=== PATIENT | male | born 1965 | race Caucasian/White ===

== ENCOUNTER 2023-11-21 21:22 | Emergency (ER) | payer SELFPAY ==
[2023-11-21 21:23] VITALS: BP 128/83; PULSE 73; RESP 16; TEMP 36.4; O2SAT 98; BMI 22.9
[2023-11-21 21:36] VITALS: RESP 18
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
[2023-11-21] MEDS: fentaNYL 50 mcg/mL INJ 2mL IVP (22:17)
[2023-11-21] MEDS: ondansetron 2 mg/ML SDV 2 mL 4 MG IVP (22:22)
[2023-11-21 23:34] VITALS: BP 135/86; PULSE 72; RESP 18; O2SAT 99
[2023-11-21] MEDS: HYDROcodone-acetaminophen 5-325 mg Tablet 2 TAB PO (23:53)
== END 2023-11-22 00:49 | disposition home or self-care (01) ==
PROVIDERS: Emergency Provider Emergency Medicine
DX: S32.020A Wedge compression fracture of second lumbar vertebra, initial encounter for closed fracture (principal); V89.2XXA Person injured in unspecified motor-vehicle accident, traffic, initial encounter
CPT/HCPCS: 70450; 71250; 72125; 74176; 96374; 96375; 99285; J2405; J3010